=== PATIENT | female | born 1980 | race Caucasian/White ===

== ENCOUNTER → 2017-01-05 | Outpatient (CLI) | payer MEDICAID ==
[~2017-01-05] MED LIST: FURO20 PO; IBUP800 PO; KCL10C PO; METH10TA PO
== END ==
LOC: HPND 09:24
PROVIDERS: ATTEND Obstetrics & Gynecology
DX: O09.522 Supervision of elderly multigravida, second trimester (principal); O09.292 Supervision of pregnancy with other poor reproductive or obstetric history, second trimester; O99.322 Drug use complicating pregnancy, second trimester
CPT/HCPCS: 76811; 76817

== ENCOUNTER → 2017-03-17 | Outpatient (CLI) | payer MEDICAID | LOC: HPND 11:10 | PROVIDERS: ATTEND Obstetrics & Gynecology | DX: O09.522 Supervision of elderly multigravida, second trimester (principal); O99.322 Drug use complicating pregnancy, second trimester | CPT/HCPCS: 76816; 76825; 76827; 93325 ==